=== PATIENT | male | born 1990 | race Caucasian/White ===

== ENCOUNTER 2016-08-17 23:34 | Emergency (ER) | payer BC, OTHER ==
[2016-08-17] MEDS ORDERED: Ketorolac INJ* 60 MG/2 ML VIAL IM ONE (23:57)
[2016-08-17] MEDS ORDERED: oxyCODONE/Acetamin 5/325 MG* TAB PO ONE (23:57)
--- NOTE | 2016-08-18 00:04 | ED ---
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 He did not know he could injure his eyes this way. Six hours after use both his eye began to be mildly itchy and then they became painful. He applied eyedrops and a cold compress but the pain has become too much. He denies other known insult. He has photophobia, clear drainage and a feeling of having a bunch of sand in both eyes. - History of Current Complaint Chief Complaint: EDEyeProblem Time Seen by Provider: 08/17/16 23:44 Hx Obtained From: Patient, Family/Senior Animator Onset/Duration: Gradual Onset Severity: Severe Associated Signs And Symptoms: Positive: FB Sensation Cough: None - Allergies/Home Medications Allergies/Adverse Reactions: Allergies Allergy/AdvReac Type Severity Reaction Status Date / Time No Known Allergies Allergy Verified 05/20/12 12:56 PMH/Surg Hx/FS Hx/Imm Hx Previously Healthy: Yes - Surgical History Surgery Procedure, Year, and Place: back surgery fused disks at age 17 Infectious Disease History: Denies: Traveled Outside the [place] in Last 30 Days - Family History Known Family History: Positive: None - Social History Occupation: Employed Full-time Lives: With Family Alcohol Use: Occasionally Substance Use Type: Reports: None Smoking Status (MU): Never Smoked Tobacco Review of Systems Negative: Fever, Chills Positive: Photophobia, Blurred Vision - mild, Drainage - clear, Erythema - bilateral Negative: Headache All Other Systems Reviewed And Are Negative: Yes Physical Exam Triage Information Reviewed: Yes Vital Signs Reviewed: Yes Appearance: Positive: Well-Appearing, Well-Nourished, Pain Distress Skin: Positive: Warm, Skin Color Reflects Adequate Perfusion, Dry, Soft Head/Face: Positive: Normal Head/Face Inspection Eyes: Positive: EOMI, AMBER, Conjunctiva Inflammed - bilateral, Discharge - clear ENT: Positive: Hearing grossly normal Respiratory/Lung Sounds: Positive: Breath Sounds Present Cardiovascular: Positive: RRR Musculoskeletal: Negative: Edema Left, Edema Right Neurological: Positive: Sensory/Motor Intact, Alert, Oriented to Person Place, Time, NV Bundle Intact Distally, Normal Gait Psychiatric: Positive: Affect/Mood Appropriate AVPU Assessment: Alert Procedures - Eye Procedure Alcaine Drops Administered: Yes Eye FB Removal: other - none Antibiotic Ointment/Drps Admin: both eyes EENT Course/Dx - Differential Diagnoses Differential Diagnoses: Abrasion, Conjunctivitis, Corneal Abrasion, Detached Retina, Keratitis, Retinal Artery Occlusion, Uveitis - Diagnoses Provider Diagnoses: Photokeratitis of both eyes Discharge - Discharge Plan Condition: Stable Disposition: HOME Prescriptions: Erythromycin OPTH OINT* 1 applic BOTH EYES QID #1 tube Ibuprofen TAB* [Motrin TAB* 600 MG] 600 mg PO Q6H PRN #40 tab PRN Reason: Pain oxyCODONE/Acetamin 5/325 MG* [Percocet 5/325 TAB*] 1 tab PO Q4H PRN #12 tab MDD 6 PRN Reason: Pain Patient Education Materials: Corneal Flash Bernardo (ED) Forms: *Work Release Referrals: Carlo NGUYEN,Surinder Reyes [Primary Care Provider] - Michael Storm MD [Medical Doctor] - Additional Instructions: Please begin taking ibuprofen 600mg three to four times daily with meals tomorrow evening with meals for the next 3-5 days to decrease swelling and pain. Use the pain pill as needed for uncontrolled pain. Use the ointment as directed for three days. Your symptoms should begin to resolve by 2-3 days. If they continue please call Dr. Storm's office for an appointment with the ophthalmology office for evaluation. Return to the emergency department if symptoms worsen.
[2016-08-18] MEDS ORDERED: Erythromycin TOPICAL GEL* 30 GM TUBE TOPICAL ONE (00:06)
[2016-08-18] MEDS ORDERED: oxyCODONE/Acetamin 5/325 MG* TAB PO ONE (00:24)
[2016-08-18] MEDS ORDERED: Erythromycin OPTH OINT* APPLIC OINT SCH (01:00)
== END 2016-08-18 00:33 | disposition home or self-care (01) ==
LOC: ED 23:34
DX: H16.133 Photokeratitis, bilateral (principal)
CPT/HCPCS: 96372; 99282; A9270-GY; J1885

== ENCOUNTER 2017-04-23 11:45 | Emergency (ER) | payer BC, OTHER ==
[2017-04-23 12:04] VITALS: BP 145/87
--- NOTE | 2017-04-23 12:18 | UC ---
FLU HPI - History of Current Complaint Chief Complaint: UCGeneralIllness Stated Complaint: VOMITING, SORE THOAT, AND EAR ACHE Time Seen by Provider: 04/23/17 12:11 Hx Obtained From: Patient Onset/Duration: Sudden Onset - 3 nights ago started with cough, fatigue, body aches, yesterday got ST. started OTC cold meds and and vomited and had diarrhea last debi. this am L ear very painful Severity Currently: Moderate Severity Initially: Moderate Pain Intensity: 6 Associated Signs & Symptoms: Positive: Fever, Sore Throat, Vomiting, Diarrhea - Allergy/Home Medications Allergies/Adverse Reactions: Allergies Allergy/AdvReac Type Severity Reaction Status Date / Time No Known Allergies Allergy Verified 05/20/12 12:56 PMH/Surg Hx/FS Hx/Imm Hx Previously Healthy: Yes - Surgical History Surgical History: Yes Surgery Procedure, Year, and Place: back surgery fused disks at age 17 - Family History Known Family History: Positive: None - Social History Occupation: Employed Full-time - Town Lives: With Family Alcohol Use: Occasionally Substance Use Type: None Smoking Status (MU): Never Smoked Tobacco Review of Systems Constitutional: Fever, Fatigue Skin: Negative Eyes: Negative ENT: Sore Throat Respiratory: Negative Cardiovascular: Negative Gastrointestinal: Vomiting, Diarrhea Genitourinary: Negative Musculoskeletal: Negative Neurological: Negative Psychological: Negative Is Patient Immunocompromised?: No All Other Systems Reviewed And Are Negative: Yes Physical Exam Triage Information Reviewed: Yes Appearance: Well-Appearing, No Pain Distress, Well-Nourished Vital Signs: Initial Vital Signs Temp 99.4 F 04/23/17 12:02 Pulse 85 04/23/17 12:02 Resp 16 04/23/17 12:02 BP 145/87 04/23/17 12:02 Pulse Ox 99 04/23/17 12:02 Vital Signs Reviewed: Yes Eye Exam: Normal ENT: Positive: Pharyngeal erythema, TM bulging, TM red - L TM only Neck exam: Normal Neck: Positive: Supple, Nontender, No Lymphadenopathy Respiratory Exam: Normal Cardiovascular Exam: Normal Cardiovascular: Positive: RRR, No Murmur, Pulses Normal Neurological Exam: Normal Psychological Exam: Normal Skin Exam: Normal Flu Course/Dx - Differential Dx/Diagnosis Differential Diagnosis/HQI/PQRI: Influenza, Upper Respiratory Infection, Other - strep throat Provider Diagnoses: LOM Discharge - Discharge Plan Condition: Stable Disposition: HOME Prescriptions: Azithromycin TAB* [Zithromax TAB (Z-STEFFANY) 250 mg #6 tabs] 2 tab PO .TODAY, THEN 1 DAILY #1 steffany Patient Education Materials: Ear Infection (ED) Forms: *Work Release Referrals: Surinder Matos MD [Primary Care Provider] - 2 Days (if no better) Additional Instructions: take zithromax as directed may use over the counter cold relief medication as directed if needed use ibuprofen for pain as directed
== END 2017-04-23 12:44 | disposition home or self-care (01) ==
LOC: UCEAST 11:45
DX: H66.92 Otitis media, unspecified, left ear (principal)
CPT/HCPCS: 87502; 87651; 99212; G0463